=== PATIENT | male | born 1965 | race Two or more races ===

== ENCOUNTER 2018-04-01 15:08 | Emergency (ER) | payer SELFPAY ==
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
[2018-04-01 15:53] VITALS: BP 104/73; PULSE 66; TEMP 97.5; BMI 31.1
--- NOTE | 2018-04-01 16:31 | PDOC ---
Attending Attestation - HPI HPI: 04/01/18 18:20 52 year old male with no significant past medical history who presents to the ED complaining of 3 days of nausea and watery diarrhea. States he ate pork and a restaurant prior to the onset of his symptoms. He denies abdominal pain or vomiting. He denies any blood per rectum. He denies fever or chills. - Physicial Exam PE: 04/01/18 18:21 Constitutional: Awake, alert, oriented. No acute distress. Head: Normocephalic. Atraumatic Eyes: PERRL. EOMI. Conjunctivae are not pale. ENT: Mucous membranes are moist and intact. Posterior pharynx without exudates or erythema. Uvula midline. Cardiovascular: Regular rate. Regular rhythm. S1, S2 regular. Distal pulses are 2+ and symmetric. Pulmonary/Chest: No evidence of respiratory distress. Clear to auscultation bilaterally No wheezing, rales or rhonchi. Abdominal: Soft and non-distended. There is no tenderness. No rebound, guarding or rigidity. No organomegaly. No palpable masses. Good bowel sounds. Skin: Skin is warm and dry. Neurological: Alert and oriented to person, place, and time. Cranial nerves II -XII are grossly intact. Normal speech. Documentation prepared by Megha Marie, acting as claim review medical director for Shirley Degroot DO. <Megha Marie - Last Filed: 04/01/18 18:20> - Resident Resident Name: Sadi Harris - ED Attending Attestation I have performed the following: I have examined & evaluated the patient, The case was reviewed & discussed with the resident, I agree w/resident's findings & plan, Exceptions are as noted - Medical Decision Making 04/01/18 16:31 I, Dr. Shirley Degroot DO, attest that this document has been prepared under my direction and personally reviewed by me in its entirety. I further attest, that it accurately reflects all work, treatment, procedures and medical decision -making performed by me. 04/01/18 19:15 a/p: 52yo male with diarrhea x 3 days after eating port -nonbloody -nasuea -epigastric pain -will send labs, suspect gastritis/gastroenteritits -will give gi cocktail -will hydrate -will monitor and reassess -pt is nontoxic in appearance 04/01/18 19:17 after medication, pt feels better stable for d/c to home recommended stool cultures/o&p, pt unable to provide sample in the ED family at bedside requests follow up with Dr. Sundeep De Dios will give Dr. Key for gi follow up answered all questions pt feels better <Shirley Degroot - Last Filed: 04/01/18 19:18>
[2018-04-01] MEDS ORDERED: MAG HYDROX/AL HYDROX/SIMETH 30 ML UNIT-DOSE CUP PO ONE (16:39)
[2018-04-01] MEDS ORDERED: SODIUM CHLORIDE 0.9% 500 ML INFUS.BAG IV ONE (16:39)
[2018-04-01] MEDS ORDERED: FAMOTIDINE 20 MG/50 ML IVPB 20 MG/50 ML MG IVPB ONE ×2 (16:39→16:51)
--- NOTE | 2018-04-01 16:41 | PDOC ---
History of Present Illness - General Chief Complaint: Pain Stated Complaint: RECTAL BLEED Time Seen by Provider: 04/01/18 15:42 - History of Present Illness Initial Comments: 52 year old male with history of hypertension and GERD presenting with abdominal pain, nausea, and multiple episode of diarrhea over the past three days. He believes this started with ingestion of some pork that tasted "off" on Thursday night. Describes his abdominal pain as burning that starts in the center of his stomach and goes up to the bottom of his sternum, worse with food , and better with laying down. He also states that he has had 5 episodes of diarrhea per day for the past three days. Admits to blood on toilet paper after wiping but no blood int he toilet itself. He has never had this abdominal pain before or noticed blood on the toilet paper before. Denies specific chest pain, SOB, vomiting, headache, weakness, lightheadedness, cough, or other symptoms. 04/01/18 16:52 Past History - Past Medical History Allergies/Adverse Reactions: Allergies Allergy/AdvReac Type Severity Reaction Status Date / Time No Known Allergies Allergy Verified 04/01/18 15:50 Home Medications: Ambulatory Orders Famotidine [Pepcid -] 20 mg PO DAILY #30 tablet 04/01/18 Mag Hydrox/Al Hydrox/Simeth [Mylanta Suspension -] 30 ml PO Q6H PRN #1 bottle COPD: No HTN: Yes - Suicide/Smoking/Psychosocial Hx Smoking History: Never smoked Have you smoked in the past 12 months: No Information on smoking cessation initiated: No Hx Alcohol Use: No Drug/Substance Use Hx: No Substance Use Type: None Review of Systems - Review of Systems Constitutional: No: Chills, Diaphoresis, Fever HEENTM: No: Blurred Vision, Tearing Respiratory: No: Cough, Shortness of Breath, Wheezing Cardiac (ROS): No: Chest Pain, Edema, Irregular Heart Rate ABD/GI: Yes: Diarrhea, Nausea, Rectal Bleeding. No: Blood Streaked Bowels, Poor Appetite, Vomiting : No: Burning, Dysuria, Discharge Musculoskeletal: No: Back Pain, Gout, Joint Pain Integumentary: No: Flushing, Lesions, Lumps Neurological: No: Headache, Numbness, Paresthesia Psychiatric: No: Anxiety, Depression Hematologic/Lymphatic: No: Anemia, Blood Clots, Easy Bleeding *Physical Exam - Vital Signs Last Vital Signs Temp Pulse Resp BP Pulse Ox 97.5 F L 66 18 104/73 99 04/01/18 15:50 04/01/18 15:50 04/01/18 15:50 04/01/18 15:50 04/01/18 15:50 - Physical Exam General Appearance: Yes: Nourished, Appropriately Dressed. No: Apparent Distress HEENT: positive: EOMI, EVAN, Normal ENT Inspection, Normal Voice Neck: positive: Trachea midline, Normal Thyroid, Supple. negative: Tender, Rigid Respiratory/Chest: positive: Lungs Clear, Normal Breath Sounds. negative: Chest Tender, Respiratory Distress, Accessory Muscle Use Cardiovascular: positive: Regular Rhythm, Regular Rate Gastrointestinal/Abdominal: positive: Flat, Soft. negative: Tender Rectal Exam: positive: heme negative stool, normal rectal tone. negative: normal exam (hemorrhoi at the 12 oclock ), melena, decreased tone Musculoskeletal: positive: Normal Inspection. negative: Decreased Range of Motion Extremity: positive: Normal Capillary Refill, Normal Inspection, Normal Range of Motion. negative: Tender Integumentary: positive: Normal Color, Dry, Warm Neurologic: positive: Fully Oriented, Alert, Normal Mood/Affect, Normal Response , Motor Strength 5/5 ED Treatment Course - LABORATORY CBC & Chemistry Diagram: 04/01/18 17:05 04/01/18 17:05 Medical Decision Making - Medical Decision Making 52 year old male with PMH of HTN and GERD presenting with burning abdominal pain , nausea, and diarrhea worsening with food. Patient overall healthy otherwise. Symptoms improved with Pepcid and Maalox which corroborates most likely diagnosis of GERD/ PUD. Labs WNL. Will DC patient with GI follow up for triple therapy vs. endoscopy. 04/01/18 18:14 *DC/Admit/Observation/Transfer Diagnosis at time of Disposition: Abdominal pain Qualifiers: Abdominal location: epigastric Qualified Code(s): R10.13 - Epigastric pain Diarrhea Qualifiers: Diarrhea type: unspecified type Qualified Code(s): R19.7 - Diarrhea, unspecified - Discharge Dispostion Disposition: HOME Condition at time of disposition: Improved Decision to Admit order: No - Prescriptions Prescriptions: Famotidine [Pepcid -] 20 mg PO DAILY #30 tablet Mag Hydrox/Al Hydrox/Simeth [Mylanta Suspension -] 30 ml PO Q6H PRN #1 bottle PRN Reason: Dyspepsia - Referrals Referrals: Vincent Key MD [Staff Physician] - - Patient Instructions Printed Discharge Instructions: DI for Peptic Ulcer Additional Instructions: Please avoid spicey, hot, and very cold foods. Please avoid alcohol. Please follow up with Dr. Key for further evaluation of your stomach pain. Please return to the ED if you have new or worsening symptoms. - Post Discharge Activity
[2018-04-01] MEDS ORDERED: MAG HYDROX/AL HYDROX/SIMETH 30 ML UNIT-DOSE CUP ONE (16:50)
[2018-04-01 17:18] LABS: BASO % 0.6 % (0-2.0); EOS % 1.2 % (0-4.5); HEMATOCRIT 46.3 % (32.4-45.2); HEMOGLOBIN 15.8 GM/dL (10.7-15.3); LYMPH % 35.4 % (8-40); MCHC 34.2 g/dl (32.0-36.0); MEAN CELL VOLUME 87.7 fl (80-96); MEAN PLT VOLUME 8.5 fl (7.5-11.1); MONO % 18.5 % (3.8-10.2); NEUT % 44.3 % (42.8-82.8); PLATELET COUNT 205 K/MM3 (134-434); RBC 5.28 M/mm3 (3.60-5.2); RDW 13.8 % (11.6-15.6); WHITE BLOOD COUNT 6.1 K/mm3 (4.0-10.0)
[2018-04-01 17:26] LABS: URINE APPEARANCE CLEAR; URINE BILIRUBIN NEGATIVE (<2.0 mg/dL); URINE COLOR LTYELLOW; URINE GLUCOSE (UA) NEGATIVE (NEGATIVE); URINE KETONE NEGATIVE (NEGATIVE); URINE LEUK ESTERASE NEGATIVE (NEGATIVE); URINE NITRITE NEGATIVE (NEGATIVE); URINE PROTEIN NEGATIVE (NEGATIVE); URINE UROBILINOGEN NEGATIVE mg/dL (0.2-1.0)
[2018-04-01 17:42] LABS: ALBUMIN 3.7 g/dl (3.4-5.0); ANION GAP 9 (8-16); BLOOD UREA NITROGEN 12 mg/dL (7-18); CALCIUM 8.7 mg/dL (8.5-10.1); CHLORIDE 106 mmol/L (98-107); CO2 25 mmol/L (21-32); GLUCOSE,RANDOM 85 mg/dL (74-106); LIPASE 104 U/L (73-393); POTASSIUM 4.1 mmol/L (3.5-5.1); SGOT/AST 29 U/L (15-37); SODIUM 140 mmol/L (136-145)
[2018-04-01 17:46] LABS: ALK PHOS 70 U/L (45-117); BILIRUBIN,TOTAL 0.4 mg/dL (0.2-1.0); SGPT/ALT 44 U/L (12-78); TOT PROT 7.1 g/dl (6.4-8.2)
--- NOTE | 2018-04-02 12:12 | EKG ---
Test Reason : Blood Pressure : / mmHG Vent. Rate : 057 BPM Atrial Rate : 057 BPM P-R Int : 184 ms QRS Dur : 084 ms QT Int : 394 ms P-R-T Axes : 039 026 020 degrees QTc Int : 383 ms SINUS BRADYCARDIA EARLY REPOLARIZATION OTHERWISE NORMAL ECG NO PREVIOUS ECGS AVAILABLE Confirmed by JULIET RODRIGUEZ, FERNANDO ([id number]) on 04/02/2018 12:12:10 PM Referred By: Confirmed By:FERNANDO CHUNG MD
== END 2018-04-01 19:46 | disposition home or self-care (01) ==
LOC: EDSEX 15:08 → JER 15:08
PROC: 3E033GC Introduction of Other Therapeutic Substance into Peripheral Vein, Percutaneous Approach (ICD-10-PCS; principal; 2018-04-01)
DX: R10.9 Unspecified abdominal pain (principal); I10 Essential (primary) hypertension
CPT/HCPCS: 36415; 80053; 81003; 82272; 82550; 82553; 83690; 84484; 85025; 93005; 93010; 99283-25